=== PATIENT | female | born 1990 ===

== ENCOUNTER 2019-09-15 15:11 | Emergency (ER) | payer OTHER ==
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
[2019-09-15 15:37] VITALS: BP 150/99; PULSE 113; O2SAT 100
[2019-09-15 16:23] LABS: Absolute Neutrophil Ct (ANC) 4.48 (1.4-6.9); BASOPHIL % 0.4 % (0.0-0.4); Basophil (Absolute #) 0.03 (0-0.4); Eosinophil % 1.3 % (0.00-5.0); Hematocrit 38.8 % (35-47); Hemoglobin 13.3 gm/dl (12.0-16.0); Lymphocyte (Absolute #) 2.46 (1.0-4.6); Lymphocytes % 31.9 % (24.0-44.0); Mean Cell Volume 87.4 fl (78-100); Mean Corpuscular Hgb Concent. 34.3 g/dl (32-36); Mean Platelet Volume 11.7 fl (6-9.5); Monocyte (Absolute #) 0.64 (0.0-1.3); Monocytes % 8.3 % (0.0-12.0); Neutrophil % 58.1 % (36.0-66.0); Platelet Count 176 K/mm3 (150-450); Red Blood Count 4.44 M/mm3 (4.1-5.4); Red Cell Distribution Width 12.8 % (11.5-14.0); White Blood Count 7.7 K/mm3 (4.0-10.5)
[2019-09-15] MEDS ORDERED: VERSED 5 MG/5 ML ONE (16:28)
[2019-09-15] MEDS ORDERED: SUBLIMAZE 100 MCG/2 ML ONE (16:29)
[2019-09-15] MEDS: VERSED 5 MG/5 ML INTRANASAL ONE (16:30)
[2019-09-15] MEDS: SUBLIMAZE 100 MCG/2 ML IV ONE (16:30)
[2019-09-15 16:58] LABS: ISTAT CREA 0.6 mg/dL (0.6-1.3)
[2019-09-15 17:39] LABS: ABO TYPING B; Antibody Screen NEGATIVE (NEGATIVE); RH TYPING NEGATIVE
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
== END 2019-09-15 17:18 | disposition short-term general hospital (02) ==
LOC: ED 15:11
DX: S51.832A Puncture wound without foreign body of left forearm, initial encounter (principal); X99.1XXA Assault by knife, initial encounter; Y93.89 Activity, other specified; Y92.89 Other specified places as the place of occurrence of the external cause
CPT/HCPCS: 36000; 36415; 73090; 80047; 85025; 86850; 86900; 86901; 96374; 99285; G0480; 80307; J2250; J3010

== ENCOUNTER 2022-04-27 14:45 | Emergency (ER) | payer OTHER ==
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
[2022-04-27] MEDS ORDERED: Sodium Chloride 0.9% 1000 ML 1,000 ML IV STA (16:24)
[2022-04-27] MEDS ORDERED: Hydromorphone 1 mg/ml Injection IV ONE (16:24)
[2022-04-27] MEDS ORDERED: Zofran 4 MG/2 ML VIAL IV ONE (16:24)
[2022-04-27 16:28] VITALS: BP 109/66; O2SAT 100
[2022-04-27] MEDS ORDERED: Sodium Chloride 0.9% 1000 ML 1,000 ML ONE (16:38)
[2022-04-27] MEDS ORDERED: Hydromorphone 1 mg/ml Injection ONE (16:38)
[2022-04-27] MEDS ORDERED: Zofran 4 MG/2 ML VIAL ONE (16:38)
[2022-04-27 17:23] LABS: Appearance CLEAR (CLEAR); Bilirubin NEGATIVE (NEGATIVE); Dipstick done @ ? MAIN LAB; Glucose NEGATIVE (NEGATIVE); Ketones NEGATIVE (NEGATIVE); Nitrite NEGATIVE (NEGATIVE); Ph 5.5 (5-6); Protein,Urine Dip NEGATIVE (Negative); RBC TRACE-INTACT Ery/ul (0-5); Specific Gravity >=1.030 (1.005-1.025); Urobilinogen 0.2 mg/dL (0-1)
[2022-04-27 17:28] LABS: Epithelial Cells RARE /HPF (FEW); Mucus SLIGHT /HPF (NEGATIVE)
[2022-04-27 17:31] LABS: Urine Cultured Indicated? NO
[2022-04-27 17:40] LABS: Absolute Neutrophil Ct (ANC) 3.84 x10^3/uL (1.4-6.9); Basophil (Absolute #) 0.05 x10^3/uL (0-0.4); Eosinophil % 1.9 % (0.00-5.0); Eosinophil (Absolute #) 0.12 x10^3/uL (0-0.5); Hematocrit 38.2 % (35-47); Hemoglobin 12.9 g/dL (12.0-16.0); Lymphocyte (Absolute #) 1.96 x10^3/uL (1.0-4.6); Lymphocytes % 30.7 % (24.0-44.0); Mean Cell Volume 87.8 fL (78-100); Mean Corpuscular Hemoglobin 29.7 pg (26-32); Mean Corpuscular Hgb Concent. 33.8 g/dL (32-36); Mean Platelet Volume 12.1 fL (7.5-11.0); Monocyte (Absolute #) 0.41 x10^3/uL (0.0-1.3); Monocytes % 6.4 % (0.0-12.0); Platelet Count 160 x10^3/uL (150-450); Red Blood Count 4.35 x10^6/uL (4.1-5.4); White Blood Count 6.4 x10^3/uL (4.0-10.5)
[2022-04-27 17:59] LABS: ALBUMIN 4.1 g/dL (3.5-5.0); ALKALINE PHOSPHATASE 82 U/L (38-126); ANION GAP 9.1 MEQ/L (5-15); BLOOD UREA NITROGEN 7 mg/dL (7-17); CHLORIDE 107 mmol/L (98-107); Calcium 8.8 mg/dL (8.4-10.2); Carbon Dioxide 24 mmol/L (22-30); Creatinine 1 0.53 mg/dL (0.52-1.04); EST GLOMERULAR FILTRATION RATE > 60.0 ML/MIN; Glucose 81 mg/dL (74-106); LIPASE 87 U/L (23-300); Potassium 3.9 mmol/L (3.5-5.1); SGOT/AST 28 U/L (14-36); SGPT/ALT 33 U/L (0-35); SODIUM 136 mmol/L (137-145)
[2022-04-27 18:56] VITALS: PULSE 68
--- NOTE | 2022-04-27 20:53 | XRAY ---
Exam: CT of the abdomen and pelvis without IV contrast. CTDI: 3.30 mGy Comparison: [None.] Indication: 32-year-old female with bilateral lower quadrant pain. The patient's information sheet also states that she has had a partial left nephrectomy and left kidney transplant. She also states she has a history of ovarian cancer. Technique: Non-IV contrast axial images were obtained through the abdomen and pelvis. Reconstructed coronal and sagittal images were created and reviewed. No oral contrast was given. Findings: Evaluation is limited without the use of IV or oral contrast. The patient is relatively thin with a lack of intraperitoneal fat intra-abdominal and pelvic soft tissue structures. The visualized lung bases appear clear. The liver and spleen appear of unremarkable size and uniform attenuation. No intrahepatic biliary duct distention is seen. The gallbladder reveals no dense calcifications within it. The pancreas appears grossly unremarkable. I see no gross adrenal lesion. The right kidney reveals no calculi, definite mass, or hydronephrosis. There is some deformity of the left kidney which may be postsurgical. There is some scattered cortical calcifications consistent with renal stones within the left kidney. I note some low attenuation density within the mid and inferior left kidney which may possibly represent a prominent extrarenal pelvis or mild hydronephrosis. Evaluation is difficult without IV contrast. The proximal left ureter is not definitely distended. The abdominal aorta reveals no aneurysm. No definite retroperitoneal lymphadenopathy is seen. There is no free intraperitoneal air or ventral abdominal wall defect. I see no evidence of bowel distention. Scattered stool is seen within the colon. The appendix appears unremarkable within the right lower quadrant. Within the upper anterior pelvis just to the left of midline, there is a 5.5 cm x 6.5 cm x 6.6 cm mass containing fat, soft tissue density, and calcification suggestive of a teratoma. In addition, within the lower posterior pelvis just to the right of midline, there is a 3.8 cm x 2.8 cm x 3.5 cm heterogeneous mass containing fat, soft tissue density, and some calcification within it consistent with a second teratoma. Both of these masses are well defined. The uterus is retroflexed. The urinary bladder is only mildly distended. I see no other other gross pelvic mass or free intraperitoneal fluid. Again, evaluation is limited without the use of IV or oral contrast coupled with the fact that the patient has a thin body habitus. The skeleton reveals no acute fracture or aggressive bone lesion. L5 appears to represent a transitional vertebra with enlarged L5 transverse processes which pseudo-articulate with the upper aspect of the sacrum on each side of midline. See coronal image #81. Impression: 1. 5.5 cm x 6.5 cm x 6.6 cm upper pelvic anterior teratoma and 3.8 cm x 2.8 cm x 3.5 cm lower pelvic posterior teratoma. 2. Normal appendix. 3. I see some scattered small left renal cortical calculi. The left kidney outline appears somewhat irregular and contains some low attenuation within it. This could reflect postsurgical changes. I cannot exclude a prominent extrarenal pelvis or even mild pyelocaliectasis. 4. Mild to moderate scattered colon stool retention is seen. A bowel obstruction is not identified. No free air or free fluid is seen. 5. Retroflexed uterus and transitional vertebra at L5.
== END 2022-04-27 19:47 | disposition left against medical advice (07) ==
LOC: ED 14:45
DX: R10.30 Lower abdominal pain, unspecified (principal); Z72.0 Tobacco use; Z59.00 Homelessness unspecified
CPT/HCPCS: 36000; 36415; 74176; 80053; 81015; 81025; 83605; 83690; 85025; 87040; 96374; 99284; J1170; J2405